=== PATIENT | male | born 1970 | race African-American/Black ===

== ENCOUNTER 2022-09-15 00:08 | Observation (INO) | payer OTHER ==
[2022-09-15 00:31] VITALS: BMI 29.0
[2022-09-15 03:44] LABS: BASO % 0.5 % (0-2.0); EOS % 2.8 % (0-4.5); HEMATOCRIT 34.9 % (35.4-49); HEMOGLOBIN 11.3 GM/dL (11.7-16.9); LYMPH % 44.6 % (8-40); MCH 24.9 pg (25.7-33.7); MCHC 32.4 g/dl (32.0-35.9); MEAN CELL VOLUME 76.8 fl (80-96); MEAN PLT VOLUME 7.7 fl (7.5-11.1); MONO % 9.5 % (3.8-10.2); NEUT % 42.6 % (42.8-82.8); PLATELET COUNT 146 10^3/uL (134-434); RBC 4.54 M/mm3 (4.00-5.60); RDW 15.1 % (11.9-15.9); WHITE BLOOD COUNT 4.4 K/mm3 (4.0-10.0)
[2022-09-15 04:01] LABS: POTASSIUM 4.3 mmol/L (3.5-5.1)
[2022-09-15 04:02] LABS: CALCIUM 8.2 mg/dL (8.5-10.1)
[2022-09-15 04:03] LABS: ALBUMIN 3.6 g/dl (3.4-5.0); BLOOD UREA NITROGEN 13.5 mg/dL (7-18)
[2022-09-15 04:06] LABS: CREATININE 0.9 mg/dL (0.55-1.3)
[2022-09-15 04:08] LABS: BILIRUBIN,TOTAL 0.3 mg/dL (0.2-1); TOT PROT 6.5 g/dl (6.4-8.2)
[2022-09-15] MEDS ORDERED: ASPIRIN 81 MG CHEWABLE TABLETS PO ONE (08:29)
[2022-09-15 09:22] LABS: INR 1.06 (0.83-1.09); PROTHROMBIN TIME (PATIENT) 12.3 SEC (9.7-13.0)
[2022-09-15] MEDS ORDERED: HEPARIN NA (PORCINE) 5,000 UNITS/ML 1ML VIAL SQ SCH ×2 (10:00→15:00)
[2022-09-15] MEDS ORDERED: ENOXAPARIN NA (PORCINE) 40 MG/0.4 ML DISP.SYRIN SQ SCH (10:00)
[2022-09-15] MEDS ORDERED: HEPARIN NA (PORCINE) 5,000 UNITS/ML 1ML VIAL SQ ONE (10:00)
[2022-09-15] MEDS ORDERED: HEPARIN NA (PORCINE) 5,000 UNITS/ML 1ML VIAL ONE (11:53)
[2022-09-15] MEDS ORDERED: ASPIRIN 81 MG CHEWABLE TABLETS ONE (11:53)
[2022-09-15 15:25] VITALS: BP 141/89; PULSE 59; RESP 19; TEMP 97.3
[2022-09-15] MEDS ORDERED: NIFEdipine E.R. 30 MG TABLET PO SCH (22:00)
[2022-09-15] MEDS ORDERED: ATORVASTATIN CA 40 MG TABLET (FP) PO SCH (22:00)
[2022-09-16] MEDS ORDERED: ASPIRIN 81 MG CHEWABLE TABLETS PO SCH (10:00)
== END 2022-09-15 19:01 | disposition left against medical advice (07) ==
LOC: JER 00:08 → UNDOADMOB 06:08 → JERBED 06:08 → INTOOBSV 06:08 → JERBED 08:26
PROVIDERS: ADMIT Internal Medicine; ATTEND Internal Medicine
PROC: 3E023GC Introduction of Other Therapeutic Substance into Muscle, Percutaneous Approach (ICD-10-PCS; principal; 2022-09-15)
DX: R20.0 Anesthesia of skin (principal); Z86.73 Personal history of transient ischemic attack (TIA), and cerebral infarction without residual deficits; I10 Essential (primary) hypertension; E78.5 Hyperlipidemia, unspecified; R07.89 Other chest pain; Z86.718 Personal history of other venous thrombosis and embolism; Z79.01 Long term (current) use of anticoagulants
CPT/HCPCS: 36415; 70460-TC; 70551-TC; 71045-TC-FY; 72125-TC; 80053; 80061; 82607; 83735; 84443; 84484; 85025; 85610; 85730; 93005; 93010; 93880-TC; 96372; 99285-25; G0378; J1644